=== PATIENT | female | born 1980 | race Hispanic/Latino ===

== ENCOUNTER 2016-06-18 11:40 | Emergency (ER) | payer MEDICAID, OTHER ==
[2016-06-18 11:46] VITALS: BMI 21.2
[2016-06-18 11:47] VITALS: BP 126/45; PULSE 73; RESP 16; TEMP 98; O2SAT 100
--- NOTE | 2016-06-18 13:23 | ED PDOC ---
HPI: Headache Time Seen by Provider: 06/18/16 12:16 Chief Complaint (Nursing): Headache Chief Complaint (Provider): Headache s/p Fall History Per: Patient History/Exam Limitations: no limitations Onset/Duration Of Symptoms: Days (x2) Current Symptoms Are (Timing): Still Present Severity: Moderate Quality: Other (left-sided) Preceeding Symptoms: None Associated Symptoms: denies: Blurred Vision, Nausea, Vomiting, Extremity Weakness, Other (no LOC) Additional Complaint(s): Rachel Antonio is a 35 year old female, with no pertinent past medical history , who presents to the ED on 06/18/16 for the evaluation of a moderate, left- sided headache that she has experienced since having slipped and hit her head 2 days ago. Though headache is not considered worst of life, patient reports that she still feels "hazy/off". Associated mild thoracic spine pain also reported, though she denies vision changes, nausea, vomiting, extremity weakness or loss of consciousness immediately post injury. PMD: Mei Past Medical History Reviewed: Historical Data, Nursing Documentation, Vital Signs Vital Signs: Last Vital Signs Temp 98.0 F 06/18/16 11:46 Pulse 73 06/18/16 11:46 Resp 16 06/18/16 11:46 BP 126/45 L 06/18/16 11:46 Pulse Ox 100 06/18/16 11:46 - Medical History PMH: Anemia, Anxiety (per old chart but pt denies), Depression (per old chart but pt denies), Gastritis Denies: Alzheimer's Disease, Diabetes, Hepatitis, HIV, HTN, Chronic Kidney Disease, Seizures, Sexually Transmitted Disease - Surgical History Surgical History: No Surg Hx - Family History Family History: States: Unknown Family Hx - Immunization History Hx Tetanus Toxoid Vaccination: No Hx Influenza Vaccination: No Hx Pneumococcal Vaccination: No - Home Medications Home Medications: Ambulatory Orders Medication Instructions Recorded No Known Home Med 09/10/15 - Allergies Allergies/Adverse Reactions: Allergies Allergy/AdvReac Type Severity Reaction Status Date / Time Seasonal: Pollen Allergy CONGESTION Uncoded 10/20/15 22:39 Review of Systems Eyes: Negative for: Vision Change Gastrointestinal: Negative for: Nausea, Vomiting Neurological: Positive for: Headache (left-sided, not worst of life). Negative for: Weakness, Numbness, Altered Mental Status (no LOC) Physical Exam - Reviewed Nursing Documentation Reviewed: Yes Vital Signs Reviewed: Yes - Physical Exam Appears: Positive for: Non-toxic, No Acute Distress Head Exam: Positive for: ATRAUMATIC, NORMOCEPHALIC. Negative for: NORMAL INSPECTION (mild tenderness to left-scalp; no crepitus) Skin: Positive for: Normal Color, Warm, Dry Eye Exam: Positive for: Normal appearance, EOMI, PERRL Neck: Positive for: Normal, Painless ROM, Supple Cardiovascular/Chest: Positive for: Regular Rate, Rhythm. Negative for: Murmur Respiratory: Positive for: Normal Breath Sounds. Negative for: Respiratory Distress Back: Positive for: Normal Inspection Extremity: Positive for: Normal ROM (moving all extremities) Neurologic/Psych: Positive for: Alert, program management specialist II-XII (intact), Oriented. Negative for: Motor/Sensory Deficits - ECG O2 Sat by Pulse Oximetry: 100 (RA) Pulse Ox Interpretation: Normal Medical Decision Making Medical Decision Makin:16 Initial Impression: headache s/p head injury; will r/o intracranial abnormality Initial Plan: * CT Head w/o contrast * XR T-Spine * Upreg * Reevaluation On re-evaluation patient was not in room. Scribe Attestation: Documented by Nelli Artis, acting as a scribe for Brenda Horan PA-C. Provider Scribe Attestation: All medical record entries made by the Scribe were at my direction and personally dictated by me. I have reviewed the chart and agree that the record accurately reflects my personal performance of the history, physical exam, medical decision making, and the department course for this patient. I have also personally directed, reviewed, and agree with the discharge instructions and disposition. Disposition - Clinical Impression Clinical Impression: Headache - Patient ED Disposition Is Patient to be Admitted: No - Disposition Disposition: Left W/O Treatment Disposition Time: 13:30 Condition: STABLE
== END 2016-06-18 13:30 | disposition left against medical advice (07) ==
LOC: H.ER 11:40
DX: S09.90XA Unspecified injury of head, initial encounter (principal); W19.XXXA Unspecified fall, initial encounter; Y92.89 Other specified places as the place of occurrence of the external cause; R51 Headache

== ENCOUNTER 2017-03-19 12:54 | Inpatient (IN) | payer OTHER ==
[2017-03-19 12:54] VITALS: BMI 21.2
[2017-03-19] MEDS ORDERED: Sodium Chloride 0.9% 1,000 ML IV STA (14:20)
[2017-03-19 14:48] LABS: BASO % 0.2 % (0.0-2.0); EOS % 0.1 % (0.0-4.0); HEMATOCRIT 40.8 % (34.0-47.0); LYMPH # 1.7 K/uL (1.0-4.3); LYMPH % 9.4 % (20.0-40.0); MEAN CELL VOLUME 99.2 fl (81.0-99.0); MEAN CORPUSCULAR HEMOGLOBIN 33.4 pg (27.0-31.0); MEAN CORPUSCULAR HGB CONC 33.6 g/dL (33.0-37.0); MEAN PLATELET VOLUME 7.7 fl (7.2-11.7); MONO # 0.6 K/uL (0.0-0.8); MONO % 3.5 % (0.0-10.0); NEUT # 15.2 K/uL (1.8-7.0); NEUT % 86.8 % (50.0-75.0); NRBC % 0.1 % (0.0-0.0); PLATELET COUNT 272 K/uL (130-400); RED CELL DISTRIBUTION WIDTH 12.6 % (11.5-14.5); WHITE BLOOD COUNT 17.6 K/uL (4.8-10.8)
[2017-03-19 15:00] LABS: ALB/GLOB RATIO 1.5 (1.0-2.1); ALKALINE PHOSPHATASE 73 U/L (38-126); ALT/SGPT 33 U/L (9-52); AST/SGOT 36 U/L (14-36); BILIRUBIN,TOTAL 0.3 mg/dl (0.2-1.3); BLOOD UREA NITROGEN 13 mg/dl (7-17); CALCIUM 9.2 mg/dL (8.4-10.2); CARBON DIOXIDE 13 mmol/L (22-30); CHLORIDE 104 mmol/L (98-107); GFR AFRICAN-AMERICAN > 60; GLUCOSE,RANDOM 52 mg/dL (65-105); LIPASE 104 U/L (23-300); SODIUM 139 mmol/l (132-148); TOTAL PROTEIN 8.2 G/DL (6.3-8.2)
[2017-03-19] MEDS ORDERED: Iohexol 240 (50 ml) PO ONE (15:00)
[2017-03-19 15:07] LABS: NEUTROPHIL 85 % (42-75); TOTAL CELLS COUNTED 100
--- NOTE | 2017-03-19 15:11 | ED PDOC ---
HPI: Abdomen Time Seen by Provider: 03/19/17 13:15 Chief Complaint (Nursing): Weakness/Neurological Deficit Chief Complaint (Provider): Abdominal Pain History Per: Patient History/Exam Limitations: no limitations Onset/Duration Of Symptoms: Days (x1) Current Symptoms Are (Timing): Still Present Location Of Pain/Discomfort: Diffuse Quality Of Discomfort: Sharp Associated Symptoms: Chills, Nausea, Vomiting, Diarrhea, Loss Of Appetite Alleviating Factors: None Last Bowel Movement: Today Additional Complaint(s): Luz Maria Antonio is a 36 year old female with a past medical history of Crohns disease who presents to the ED complaining of sudden onset diffuse abdominal pain with associated vomiting, diarrhea, and generalized weakness since this morning. Patient is tearful and a poor historian. Asking provider to refer to prior charts for further information. On review, records show patient was admitted to the ICU in March 2016 due to severe colitis and acidosis. Denies bloody stools or known fever today. Patient admitted to nurse that she smokes marijuana daily. Denies alcohol use. PMD: Non-[facility] Provider Abnormal Vaginal Bleeding: No Past Medical History Reviewed: Historical Data, Nursing Documentation, Vital Signs Vital Signs: Last Vital Signs Temp 98.4 F 03/21/17 07:44 Pulse 63 03/21/17 07:44 Resp 18 03/21/17 07:44 BP 108/69 03/21/17 07:44 Pulse Ox 98 03/21/17 07:44 - Medical History PMH: Anemia, Anxiety (per old chart but pt denies), Crohn's Disease, Depression (per old chart but pt denies), Gastritis Denies: Alzheimer's Disease, Diabetes, Hepatitis, HIV, HTN, Chronic Kidney Disease, Seizures, Sexually Transmitted Disease - Surgical History Surgical History: No Surg Hx - Family History Family History: States: Unknown Family Hx - Social History Alcohol: None Drugs: Cannabis (daily) - Immunization History Hx Tetanus Toxoid Vaccination: No Hx Influenza Vaccination: No Hx Pneumococcal Vaccination: No - Home Medications Home Medications: Ambulatory Orders Medication Instructions Recorded No Known Home Med 09/10/15 - Allergies Allergies/Adverse Reactions: Allergies Allergy/AdvReac Type Severity Reaction Status Date / Time Seasonal: Pollen Allergy CONGESTION Uncoded 10/20/15 22:39 Review of Systems ROS Statement: Except As Marked, All Systems Reviewed And Found Negative Constitutional: Positive for: Weakness, Other (Fatigue). Negative for: Fever Gastrointestinal: Positive for: Nausea, Vomiting, Abdominal Pain (diffuse), Diarrhea. Negative for: Hematochezia Physical Exam - Reviewed Nursing Documentation Reviewed: Yes Vital Signs Reviewed: Yes - Physical Exam Appears: Positive for: Non-toxic, No Acute Distress Head Exam: Positive for: ATRAUMATIC, NORMAL INSPECTION, NORMOCEPHALIC Skin: Positive for: Normal Color, Warm, Dry Eye Exam: Positive for: EOMI, Normal appearance, PERRL Neck: Positive for: Normal, Painless ROM, Supple Cardiovascular/Chest: Positive for: Regular Rate, Rhythm. Negative for: Murmur Respiratory: Positive for: Normal Breath Sounds. Negative for: Respiratory Distress Gastrointestinal/Abdominal: Positive for: Tenderness (diffuse) Back: Positive for: Normal Inspection. Negative for: L CVA Tenderness, R CVA Tenderness, Vertebral Tenderness Extremity: Positive for: Normal ROM. Negative for: Pedal Edema, Deformity Neurologic/Psych: Positive for: Alert, Oriented (x3), Mood/Affect (Anxious appearing). Negative for: Motor/Sensory Deficits - Laboratory Results Result Diagrams: 03/20/17 04:35 03/20/17 04:35 - ECG O2 Sat by Pulse Oximetry: 100 (RA) Pulse Ox Interpretation: Normal Medical Decision Making Medical Decision Making: Time: 14:20 Initial Impression: Abdominal pain, vomiting, diarrhea Plan: --Workup for abdominal pain, vomiting and diarrhea --CMP --Lipase --Urine drug screen --Urine --CBC w/ differential --Toradol 30 mg IV --Zofran 4 mg IV --Sodium Chloride 0.9% 1,000 ml IV --Reevaluation Prior chart reviewed 04/15- admitted severe sepsis/ acidosis/ colitis x1d. Time: 15:00 --Blood work reveals elevated white count of 17.6. Pulse is elevated at 130. Sepsis workup is initiated. --VBG Shock Panel --CT Abd & pelvis w/ contrast --Blood culture Code Sepsis initiated given lactate 4.5 and WBC 17. Blood Cx obtained. IVF 30ml/kg ordered Repeat lactate ordered CT abd pelv pending On re-eval 325p states pain improved after 1L NS and toradol --Patient is endorsed to Dr. Pack pending CT, sepsis workup and disposition Scribe Attestation: Documented by Antonio Valdivia acting as a scribe for Shan Stacy DO. MD Scribe Attestation: All medical record entries made by the Scribe were at my direction and personally dictated by me. I have reviewed the chart and agree that the record accurately reflects my personal performance of the history, physical exam, medical decision making, and the department course for this patient. I have also personally directed, reviewed, and agree with the discharge instructions and disposition. Disposition - Clinical Impression Clinical Impression: Lactic acidosis, Severe sepsis - Patient ED Disposition Is Patient to be Admitted: Transfer of Care - Disposition Disposition: Transfer of Care Disposition Time: 15:00 Condition: GUARDED Patient Signed Over To: Whitney Pack Handoff Comments: pending CT and disposition
[2017-03-19 15:26] LABS: VENOUS BLOOD GAS BASE EXCESS -9.3 mmol/L (0.0-2.0); VENOUS BLOOD GAS PCO2 34 mmHg (40-60); VENOUS BLOOD PH 7.29 (7.32-7.43)
[2017-03-19] MEDS ORDERED: Piperacillin/Tazobact 3.375 GM in Sodium Chloride 0.9% 100 ML IVPB STA (15:48)
--- NOTE | 2017-03-19 16:39 | ED PDOC ---
- Laboratory Results Result Diagrams: 03/19/17 14:44 03/19/17 14:44 - ECG O2 Sat by Pulse Oximetry: 99 Medical Decision Making Medical Decision Making: Time: 15:00 --Patient signed over to me by Dr. Stacy pending CT and dispo Time: 20:08 CT Abd and Pelvis FINDINGS: Lower thorax: No acute findings. ABDOMEN: Liver: Unremarkable. No mass. Gallbladder and bile ducts: Unremarkable. No calcified stones. No ductal dilation. Pancreas: Unremarkable. No mass. No ductal dilation. Spleen: Unremarkable. No splenomegaly. Adrenals: Unremarkable. No mass. Kidneys and ureters: There is punctate nonobstructive bilateral nephrolithiasis. Stomach and bowel: There is mild wall thickening of portions of the distal colon which may be due to underdistention, but cannot exclude mild colitis. No other obvious inflammatory change of the bowel. Appendix: The appendix is unremarkable and seen best on axial image 103 of series 3. PELVIS: Bladder: Unremarkable. No mass. Reproductive: There is a 1.7 cm right ovarian cyst or involuting follicle. ABDOMEN and PELVIS: Intraperitoneal space: Unremarkable. No free air. No significant fluid collection. Bones/joints: No acute fracture. No dislocation. Soft tissues: Unremarkable. Vasculature: Unremarkable. No abdominal aortic aneurysm. Lymph nodes: Unremarkable. No enlarged lymph nodes. IMPRESSION: 1. There is punctate nonobstructive bilateral nephrolithiasis. 2. There is a 1.7 cm right ovarian cyst or involuting follicle. 3. There is mild wall thickening of portions of the distal colon which may be due to underdistention, but cannot exclude mild colitis. No other obvious inflammatory change of the bowel. Time: 20:15 --Discussed with Dr. French medical service. Patient will be hospitalized for severe sepsis and colitis. Continued IV hydration. Scribe Attestation: Documented by Antonio Valdivia acting as a scribe for Whitney Pack MD. MD Walls Attestation: All medical record entries made by the Kavita were at my direction and personally dictated by me. I have reviewed the chart and agree that the record accurately reflects my personal performance of the history, physical exam, medical decision making, and the department course for this patient. I have also personally directed, reviewed, and agree with the discharge instructions and disposition. Disposition - Clinical Impression Clinical Impression: Lactic acidosis, Severe sepsis - Disposition Disposition Time: 08:15
[2017-03-19 16:53] LABS: MAGNESIUM 1.6 MG/DL (1.6-2.3)
[2017-03-19] MEDS ORDERED: Iohexol 240 (50 ml) ONE (16:58)
[2017-03-19 17:15] LABS: PARTIAL THROMBOPLASTIN TIME 25.1 Seconds (25.6-37.1)
--- NOTE | 2017-03-19 17:49 | RAD ---
HISTORY: Sepsis Patient COMPARISON: Chest x-ray performed 04/20/16 TECHNIQUE: Chest, one view. FINDINGS: LUNGS: No focal consolidation. Please note that chest x-ray has limited sensitivity for the detection of pulmonary masses. PLEURA: No significant pleural effusion identified. No definite pneumothorax . CARDIOVASCULAR: Heart size appears within normal limits. OSSEOUS STRUCTURES: Degenerative changes of the spine. VISUALIZED UPPER ABDOMEN: Unremarkable. OTHER FINDINGS: None. IMPRESSION: No focal consolidation, significant pleural effusion, or definite pneumothorax identified.
[2017-03-19 18:26] LABS: RBC URINE 1 /hpf (0-3); URINE BILIRUBIN NEGATIVE (NEGATIVE); URINE BLOOD NEGATIVE (NEGATIVE); URINE COLOR YELLOW (YELLOW); URINE GLUCOSE (UA) NEG (Normal); URINE KETONE 80 mg/dL (NEGATIVE); URINE LEUKOCYTE ESTERASE NEG Leu/uL (Negative); URINE PROTEIN NEGATIVE (NEGATIVE); URINE UROBILINOGEN 0.2-1.0 mg/dL (0.2-1.0); WBC URINE < 1 /hpf (0-5)
[2017-03-19 18:31] LABS: VENOUS BLOOD GAS BASE EXCESS -7.6 mmol/L (0.0-2.0); VENOUS BLOOD GAS PCO2 19 mmHg (40-60); VENOUS BLOOD PH 7.47 (7.32-7.43)
[2017-03-19] MEDS ORDERED: Dextrose 50% SYRINGE Inj (50 ml) IVP STA (18:47)
[2017-03-19] MEDS ORDERED: Dextrose 50% SYRINGE Inj (50 ml) ONE (18:50)
[2017-03-19] MEDS ORDERED: Iohexol 300 100 ML IJ ONE (18:55)
[2017-03-19] MEDS: Dextrose 5%/Lactated Ringer's 1,000 ML IV SCH (19:03)
[2017-03-20] MEDS: Ciprofloxacin 400mg/200ml D5W 400 MG/200 ML BAG IVPB SCH ×3 (01:12→20:49)
[2017-03-20] MEDS: metroNIDAZOLE 500mg/100ml NS 100 ML IVPB SCH ×3 (01:16→16:12)
[2017-03-20 05:46] LABS: BASO % 0.6 % (0.0-2.0); EOS # 0.1 K/uL (0.0-0.7); EOS % 2.1 % (0.0-4.0); HEMATOCRIT 33.6 % (34.0-47.0); LYMPH % 34.2 % (20.0-40.0); MEAN CELL VOLUME 98.9 fl (81.0-99.0); MEAN CORPUSCULAR HEMOGLOBIN 33.7 pg (27.0-31.0); MEAN CORPUSCULAR HGB CONC 34.1 g/dL (33.0-37.0); MEAN PLATELET VOLUME 7.6 fl (7.2-11.7); MONO # 0.7 K/uL (0.0-0.8); MONO % 12.2 % (0.0-10.0); NEUT % 50.9 % (50.0-75.0); RED CELL DISTRIBUTION WIDTH 12.6 % (11.5-14.5); WHITE BLOOD COUNT 5.9 K/uL (4.8-10.8)
[2017-03-20] MEDS: Dextrose 5%/Lactated Ringer's 1,000 ML IV SCH ×2 (07:00→16:00)
[2017-03-20 07:20] LABS: BLOOD UREA NITROGEN 7 mg/dl (7-17); CALCIUM 8.2 mg/dL (8.4-10.2); CARBON DIOXIDE 18 mmol/L (22-30); CHLORIDE 103 mmol/L (98-107); GFR AFRICAN-AMERICAN > 60; GLUCOSE,RANDOM 71 mg/dL (65-105); POTASSIUM 3.5 MMOL/L (3.6-5.0); SODIUM 132 mmol/l (132-148)
[2017-03-20] MEDS ORDERED: Potassium Chloride 20 mEq/15 ml LIQ UD PO ONE (09:13)
--- NOTE | 2017-03-20 09:24 | CP.PCM.CON ---
History of Present Illness - History of Present Illness History of Present Illness: 36 yo female admitted with nausea, vomiting, and abdominal pain since Thursday night. Had eaten crabcakes earlier that day. 2 othe recent episodes requiring admission in 08/2015 and 03/2016. No specific etiologies were identified. Currently feeling better Review of Systems - Constitutional Constitutional: absent: Chills - EENT Eyes: absent: Blurred Vision Ears: absent: Decreased Hearing Nose/Mouth/Throat: absent: Epistaxis - Cardiovascular Cardiovascular: absent: Chest Pain - Respiratory Respiratory: absent: Cough - Gastrointestinal Gastrointestinal: As Per HPI Past Patient History - Infectious Disease Hx of Infectious Diseases: None - Past Medical History & Family History Past Medical History?: Yes - Past Social History Smoking Status: Never Smoked - CARDIAC Hx Hypertension: No - PULMONARY Hx Respiratory Disorders: No - NEUROLOGICAL Hx Alzheimer's Disease: No Hx Seizures: No - HEENT Hx HEENT Problems: No - RENAL Hx Chronic Kidney Disease: No - ENDOCRINE/METABOLIC Hx Endocrine Disorders: No - HEMATOLOGICAL/ONCOLOGICAL Hx Anemia: Yes Hx Human Immunodeficiency Virus (HIV): No - INTEGUMENTARY Hx Dermatological Problems: No - MUSCULOSKELETAL/RHEUMATOLOGICAL Hx Musculoskeletal Disorders: No - GASTROINTESTINAL Hx Crohn's Disease: Yes Hx Gastritis: Yes - GENITOURINARY/GYNECOLOGICAL Hx Sexually Transmitted Disorders: No - PSYCHIATRIC Hx Anxiety: Yes (per old chart but pt denies) Hx Depression: Yes (per old chart but pt denies) Hx Substance Use: No - SURGICAL HISTORY Hx Surgeries: Yes Other/Comment: Rhinoplasty 2010 - ANESTHESIA Hx Anesthesia: Yes Hx Anesthesia Reactions: No Meds Allergies/Adverse Reactions: Allergies Allergy/AdvReac Type Severity Reaction Status Date / Time Seasonal: Pollen Allergy CONGESTION Uncoded 10/20/15 22:39 - Medications Medications: Current Medications Dextrose/Lactated Ringer's (Dextrose 5%/Lactated Ringer's) 1,000 mls @ 100 mls/ hr IV .Q10H TIFFANY Last Admin: 03/20/17 07:00 Dose: Not Given Ciprofloxacin (Cipro 400mg/200ml Dsw) 400 mg in 200 mls @ 200 mls/hr IVPB Q12 TIFFANY PRN Reason: Protocol Last Admin: 03/20/17 01:12 Dose: 200 mls/hr Metronidazole (Flagyl 500mg/100ml Ns) 100 mls @ 100 mls/hr IVPB Q8 TIFFANY PRN Reason: Protocol Last Admin: 03/20/17 01:16 Dose: 100 mls/hr Morphine Sulfate (Morphine) 1 mg IVP Q4 PRN PRN Reason: Pain, severe (8-10) Morphine Sulfate (Morphine) 0.5 mg IVP Q4 PRN PRN Reason: Pain, moderate (4-7) Ondansetron HCl (Zofran Inj) 4 mg IVP Q6 PRN PRN Reason: Nausea/Vomiting Pantoprazole Sodium (Protonix Ec Tab) 40 mg PO DAILY TIFFANY Potassium Chloride (Potassium Chloride Oral Soln) 20 meq PO ONCE ONE Stop: 03/20/17 09:14 Physical Exam - Constitutional Appears: No Acute Distress - Head Exam Head Exam: ATRAUMATIC - Eye Exam Eye Exam: Normal appearance - ENT Exam ENT Exam: Normal Exam - Neck Exam Neck exam: Positive for: Normal Inspection - Respiratory Exam Respiratory Exam: Clear to Auscultation Bilateral - Cardiovascular Exam Cardiovascular Exam: REGULAR RHYTHM, +S1, +S2 - GI/Abdominal Exam GI & Abdominal Exam: Normal Bowel Sounds, Soft, Tenderness Additional comments: LLQ tenderness only Results - Vital Signs Recent Vital Signs: Last Vital Signs Temp 98.1 F 03/20/17 08:00 Pulse 67 03/20/17 08:00 Resp 18 03/20/17 08:00 BP 100/65 03/20/17 08:00 Pulse Ox 100 03/20/17 08:00 - Labs Result Diagrams: 03/20/17 04:35 03/20/17 04:35 Labs: Laboratory Results - last 24 hr 03/19/17 03/19/17 03/19/17 14:44 14:44 15:05 WBC 17.6 H D RBC 4.12 Hgb 13.7 D Hct 40.8 MCV 99.2 H D MCH 33.4 H MCHC 33.6 RDW 12.6 Plt Count 272 D MPV 7.7 Neut % (Auto) 86.8 H Lymph % (Auto) 9.4 L [place] % (Auto) 3.5 Eos % (Auto) 0.1 Baso % (Auto) 0.2 Neut # 15.2 H Lymph # 1.7 [place] # 0.6 Eos # 0.0 Baso # 0.0 Neutrophils % (Manual) 85 H Band Neutrophils % 2 Lymphocytes % (Manual) 11 L Monocytes % (Manual) 2 Platelet Estimate Normal RBC Morphology Normal PT INR APTT pO2 27 L VBG pH 7.29 L VBG pCO2 34 L VBG HCO3 16.3 VBG Total CO2 17.3 L VBG O2 Sat (Calc) 46.8 VBG Base Excess -9.3 L VBG Potassium 4.1 A-a O2 Difference 80.0 Glucose 64 L Lactate 4.5 H* FiO2 21.0 Crit Value Called To Stone medina Crit Value Called By 15 Crit Value Read Back Y Blood Gas Notified Time 1524 Sodium 139 135.0 Potassium 4.0 Chloride 104 105.0 Carbon Dioxide 13 L Anion Gap 26 H BUN 13 Creatinine 0.6 L Est GFR ( Amer) > 60 Est GFR (Non-Af Amer) > 60 POC Glucose (mg/dL) Random Glucose 52 L Calcium 9.2 Phosphorus Magnesium Total Bilirubin 0.3 AST 36 ALT 33 Alkaline Phosphatase 73 Total Protein 8.2 Albumin 4.9 Globulin 3.2 Albumin/Globulin Ratio 1.5 Lipase 104 Venous Blood Potassium 4.1 Urine Color Urine Clarity Urine pH Ur Specific [place] Urine Protein Urine Glucose (UA) Urine Ketones Urine Blood Urine Nitrate Urine Bilirubin Urine Urobilinogen Ur Leukocyte Esterase Urine RBC (Auto) Urine Microscopic WBC Ur Squamous Epith Cells Hyaline Casts Urine Opiates Screen Urine Methadone Screen Ur Barbiturates Screen Ur Phencyclidine Scrn Ur Amphetamines Screen U Benzodiazepines Scrn U Oth Cocaine Metabols U Cannabinoids Screen 03/19/17 03/19/17 03/19/17 16:43 16:52 17:56 WBC RBC Hgb Hct MCV MCH MCHC RDW Plt Count MPV Neut % (Auto) Lymph % (Auto) [place] % (Auto) Eos % (Auto) Baso % (Auto) Neut # Lymph # [place] # Eos # Baso # Neutrophils % (Manual) Band Neutrophils % Lymphocytes % (Manual) Monocytes % (Manual) Platelet Estimate RBC Morphology PT 11.0 INR 1.0 APTT 25.1 L pO2 VBG pH VBG pCO2 VBG HCO3 VBG Total CO2 VBG O2 Sat (Calc) VBG Base Excess VBG Potassium A-a O2 Difference Glucose Lactate FiO2 Crit Value Called To Crit Value Called By Crit Value Read Back Blood Gas Notified Time Sodium Potassium Chloride Carbon Dioxide Anion Gap BUN Creatinine Est GFR ( Amer) Est GFR (Non-Af Amer) POC Glucose (mg/dL) Random Glucose Calcium Phosphorus 3.0 Magnesium 1.6 Total Bilirubin AST ALT Alkaline Phosphatase Total Protein Albumin Globulin Albumin/Globulin Ratio Lipase Venous Blood Potassium Urine Color Urine Clarity Urine pH Ur Specific [place] Urine Protein Urine Glucose (UA) Urine Ketones Urine Blood Urine Nitrate Urine Bilirubin Urine Urobilinogen Ur Leukocyte Esterase Urine RBC (Auto) Urine Microscopic WBC Ur Squamous Epith Cells Hyaline Casts Urine Opiates Screen Negative Urine Methadone Screen Negative Ur Barbiturates Screen Negative Ur Phencyclidine Scrn Negative Ur Amphetamines Screen Negative U Benzodiazepines Scrn Negative U Oth Cocaine Metabols Negative U Cannabinoids Screen Positive H 03/19/17 03/19/17 03/19/17 17:56 18:04 18:49 WBC RBC Hgb Hct MCV MCH MCHC RDW Plt Count MPV Neut % (Auto) Lymph % (Auto) [place] % (Auto) Eos % (Auto) Baso % (Auto) Neut # Lymph # [place] # Eos # Baso # Neutrophils % (Manual) Band Neutrophils % Lymphocytes % (Manual) Monocytes % (Manual) Platelet Estimate RBC Morphology PT INR APTT pO2 35 VBG pH 7.47 H VBG pCO2 19 L* VBG HCO3 18.5 VBG Total CO2 14.4 L VBG O2 Sat (Calc) 80.7 H VBG Base Excess -7.6 L VBG Potassium 3.9 A-a O2 Difference 91.0 Glucose 53 L Lactate 3.3 H FiO2 21.0 Crit Value Called To Andrew gutierrez bsn Crit Value Called By 15 Crit Value Read Back Y Blood Gas Notified Time 1831 Sodium 132.0 Potassium Chloride 104.0 Carbon Dioxide Anion Gap BUN Creatinine Est GFR ( Amer) Est GFR (Non-Af Amer) POC Glucose (mg/dL) 46 L Random Glucose Calcium Phosphorus Magnesium Total Bilirubin AST ALT Alkaline Phosphatase Total Protein Albumin Globulin Albumin/Globulin Ratio Lipase Venous Blood Potassium 3.9 Urine Color Yellow Urine Clarity Slighty-cloudy Urine pH 5.0 Ur Specific [place] 1.012 Urine Protein Negative Urine Glucose (UA) Neg Urine Ketones 80 Urine Blood Negative Urine Nitrate Negative Urine Bilirubin Negative Urine Urobilinogen 0.2-1.0 Ur Leukocyte Esterase Neg Urine RBC (Auto) 1 Urine Microscopic WBC < 1 Ur Squamous Epith Cells 14 H Hyaline Casts 3-5 H Urine Opiates Screen Urine Methadone Screen Ur Barbiturates Screen Ur Phencyclidine Scrn Ur Amphetamines Screen U Benzodiazepines Scrn U Oth Cocaine Metabols U Cannabinoids Screen 03/19/17 03/20/17 03/20/17 19:38 04:35 04:35 WBC 5.9 D RBC 3.40 L Hgb 11.4 L D Hct 33.6 L MCV 98.9 MCH 33.7 H MCHC 34.1 RDW 12.6 Plt Count 197 MPV 7.6 Neut % (Auto) 50.9 Lymph % (Auto) 34.2 [place] % (Auto) 12.2 H Eos % (Auto) 2.1 Baso % (Auto) 0.6 Neut # 3.0 Lymph # 2.0 [place] # 0.7 Eos # 0.1 Baso # 0.0 Neutrophils % (Manual) Band Neutrophils % Lymphocytes % (Manual) Monocytes % (Manual) Platelet Estimate RBC Morphology PT INR APTT pO2 VBG pH VBG pCO2 VBG HCO3 VBG Total CO2 VBG O2 Sat (Calc) VBG Base Excess VBG Potassium A-a O2 Difference Glucose Lactate FiO2 Crit Value Called To Crit Value Called By Crit Value Read Back Blood Gas Notified Time Sodium 132 Potassium 3.5 L Chloride 103 Carbon Dioxide 18 L Anion Gap 15 BUN 7 Creatinine 0.6 L Est GFR ( Amer) > 60 Est GFR (Non-Af Amer) > 60 POC Glucose (mg/dL) 115 H Random Glucose 71 Calcium 8.2 L Phosphorus Magnesium Total Bilirubin AST ALT Alkaline Phosphatase Total Protein Albumin Globulin Albumin/Globulin Ratio Lipase Venous Blood Potassium Urine Color Urine Clarity Urine pH Ur Specific [place] Urine Protein Urine Glucose (UA) Urine Ketones Urine Blood Urine Nitrate Urine Bilirubin Urine Urobilinogen Ur Leukocyte Esterase Urine RBC (Auto) Urine Microscopic WBC Ur Squamous Epith Cells Hyaline Casts Urine Opiates Screen Urine Methadone Screen Ur Barbiturates Screen Ur Phencyclidine Scrn Ur Amphetamines Screen U Benzodiazepines Scrn U Oth Cocaine Metabols U Cannabinoids Screen Assessment & Plan (1) Colitis Assessment and Plan: clinical presentation most c/w infectious colitis. Though this is third bout in past year and a half , there is no lab or imaging evidence of IBD. Continue current abx, IV hydration, and C. diff testing. May advance diet today. May benefit from colonoscopy to r/o underlying chronic colitis though this can be done as outpatient. Status: Acute
--- NOTE | 2017-03-20 10:08 | CT ---
PROCEDURE: CT Abdomen and Pelvis with contrast HISTORY: abdominal pain, hx crohns and elev WBC COMPARISON: Abdomen and pelvis CT with contrast 04/20/2016. TECHNIQUE: Contrast dose: Omnipaque 300, 90 cc Radiation dose: Total exam DLP = 437.51 mGy-cm. This CT exam was performed using one or more of the following dose reduction techniques: Automated exposure control, adjustment of the mA and/or kV according to patient size, and/or use of iterative reconstruction technique. FINDINGS: LOWER THORAX: Unremarkable. LIVER: Diminished attenuation of the liver is again appreciated indicating hepatic steatosis. No hepatic lesion is appreciated and there is no intrahepatic biliary dilatation identified. GALLBLADDER AND BILE DUCTS: Unremarkable. PANCREAS: Unremarkable. No gross lesion or ductal dilatation. SPLEEN: Unremarkable. ADRENALS: Unremarkable. No mass. KIDNEYS AND URETERS: A few punctate intrarenal calculi are again identified bilaterally. No obstructive uropathy or perinephric reaction bilaterally. VASCULATURE: Unremarkable. No aortic aneurysm. BOWEL: Borderline mural thickening of the sigmoid colon is questioned though not definite given lack of adequate distention. No pericolic reaction ascites or free intraperitoneal gas. Small bowel is unremarkable as well as stomach as imaged. APPENDIX: Normal appendix. PERITONEUM: Unremarkable. No free fluid. No free air. LYMPH NODES: Unremarkable. No enlarged lymph nodes. BLADDER: Urinary bladder is distended but thin and smooth walled. REPRODUCTIVE: 1.4 cm cyst seen at the right adnexal compartment. BONES: No acute fracture. OTHER FINDINGS: None. IMPRESSION: 1. 1.4 cm right adnexal cyst is appreciated. 2. Borderline mural thickening of the sigmoid colon may be normal due to lack of adequate distention with limited colitis not completely excluded. No pericolic reaction, ascites or free intrarenal gas identified nevertheless. 3. Hepatic steatosis. 4. A few punctate intrarenal calculi are again a few appreciated within the bilateral kidneys without obstructive uropathy identified bilaterally.
[2017-03-20] MEDS: Pantoprazole 40 mg EC Tab PO SCH (10:15)
--- NOTE | 2017-03-20 15:55 | CARD ---
APPROVED REPORT EKG Measurement Heart [id number] <Conclusion> Normal sinus rhythm Prolonged QT Abnormal ECG
--- NOTE | 2017-03-20 17:45 | CP.PCM.HP ---
History of Present Illness - History of Present Illness History of Present Illness: CC: Abdominal Pain History of Present Illness: A 36 year old female with a past medical history of Recurrent Colitis ? Infectious who presents to the ED complaining of sudden onset diffuse abdominal pain with associated vomiting, diarrhea, and generalized weakness since the morning of hospitalization. On review, records show patient was admitted to the ICU in March 2016 due to severe colitis and acidosis. Denies bloody stools or known fever today. Patient admitted to nurse that she smokes marijuana daily. Never had a colonoscopy, and IBD is a possiblility. Denies alcohol use. Present on Admission - Present on Admission Any Indicators Present on Admission: No Review of Systems - Review of Systems All systems: reviewed and no additional remarkable complaints except - Gastrointestinal Gastrointestinal: As Per HPI Past Patient History - Infectious Disease Hx of Infectious Diseases: None - Past Medical History & Family History Past Medical History?: Yes Pertinent Family History: Father Colon Ca @the age of 52years. - Past Social History Smoking Status: Never Smoked Alcohol: None Drugs: Cannabis - CARDIAC Hx Hypertension: No - PULMONARY Hx Respiratory Disorders: No - NEUROLOGICAL Hx Alzheimer's Disease: No Hx Seizures: No - HEENT Hx HEENT Problems: No - RENAL Hx Chronic Kidney Disease: No - ENDOCRINE/METABOLIC Hx Endocrine Disorders: No - HEMATOLOGICAL/ONCOLOGICAL Hx Anemia: Yes Hx Human Immunodeficiency Virus (HIV): No - INTEGUMENTARY Hx Dermatological Problems: No - MUSCULOSKELETAL/RHEUMATOLOGICAL Hx Musculoskeletal Disorders: No - GASTROINTESTINAL Hx Crohn's Disease: Yes Hx Gastritis: Yes - GENITOURINARY/GYNECOLOGICAL Hx Sexually Transmitted Disorders: No - PSYCHIATRIC Hx Anxiety: Yes (per old chart but pt denies) Hx Depression: Yes (per old chart but pt denies) Hx Substance Use: No - SURGICAL HISTORY Hx Surgeries: Yes Other/Comment: Rhinoplasty 2010 - ANESTHESIA Hx Anesthesia: Yes Hx Anesthesia Reactions: No Meds Home Medications: Home Medication List Medication Instructions Recorded Confirmed Type Ciprofloxacin [Cipro] 500 mg PO BID #10 tab 03/21/17 Rx Metronidazole [Flagyl] 500 mg PO Q8 #15 tablet 03/21/17 Rx Pantoprazole [Protonix EC Tab] 40 mg PO DAILY ect 03/21/17 Rx Allergies/Adverse Reactions: Allergies Allergy/AdvReac Type Severity Reaction Status Date / Time Seasonal: Pollen Allergy CONGESTION Uncoded 10/20/15 22:39 Physical Exam - Constitutional Appears: In Acute Distress - Head Exam Head Exam: ATRAUMATIC, NORMAL INSPECTION, NORMOCEPHALIC - Eye Exam Eye Exam: EOMI, Normal appearance, PERRL Pupil Exam: NORMAL ACCOMODATION, PERRL - ENT Exam ENT Exam: Mucous Membranes Moist, Normal Exam - Neck Exam Neck exam: Positive for: Normal Inspection - Respiratory Exam Respiratory Exam: Clear to Auscultation Bilateral, NORMAL BREATHING PATTERN - Cardiovascular Exam Cardiovascular Exam: Tachycardia, +S1, +S2 - GI/Abdominal Exam GI & Abdominal Exam: Guarding, Normal Bowel Sounds, Tenderness. absent: Rebound , Rigid - Extremities Exam Extremities exam: Positive for: full ROM, normal capillary refill, normal inspection - Back Exam Back exam: NORMAL INSPECTION - Neurological Exam Neurological exam: Alert, CN II-XII Intact, Normal Gait, Oriented x3, Reflexes Normal - Psychiatric Exam Psychiatric exam: Normal Affect, Normal Mood - Skin Skin Exam: Dry, Intact, Normal Color, Warm Results - Vital Signs Recent Vital Signs: Last Vital Signs Temp 99.4 F 03/20/17 15:35 Pulse 72 03/20/17 15:35 Resp 20 03/20/17 15:35 BP 133/75 03/20/17 15:35 Pulse Ox 97 03/20/17 15:35 - Labs Result Diagrams: 03/20/17 04:35 03/20/17 04:35 Labs: Laboratory Results - last 24 hr 03/19/17 03/19/17 03/19/17 17:56 17:56 18:04 WBC RBC Hgb Hct MCV MCH MCHC RDW Plt Count MPV Neut % (Auto) Lymph % (Auto) [place] % (Auto) Eos % (Auto) Baso % (Auto) Neut # Lymph # [place] # Eos # Baso # pO2 35 VBG pH 7.47 H VBG pCO2 19 L* VBG HCO3 18.5 VBG Total CO2 14.4 L VBG O2 Sat (Calc) 80.7 H VBG Base Excess -7.6 L VBG Potassium 3.9 A-a O2 Difference 91.0 Sodium 132.0 Chloride 104.0 Glucose 53 L Lactate 3.3 H FiO2 21.0 Crit Value Called To Andrew diaz Crit Value Called By 15 Crit Value Read Back Y Blood Gas Notified Time 1830 Potassium Carbon Dioxide Anion Gap BUN Creatinine Est GFR ( Amer) Est GFR (Non-Af Amer) POC Glucose (mg/dL) Random Glucose Calcium TSH 3rd Generation Venous Blood Potassium 3.9 Urine Color Yellow Urine Clarity Slighty-cloudy Urine pH 5.0 Ur Specific [place] 1.012 Urine Protein Negative Urine Glucose (UA) Neg Urine Ketones 80 Urine Blood Negative Urine Nitrate Negative Urine Bilirubin Negative Urine Urobilinogen 0.2-1.0 Ur Leukocyte Esterase Neg Urine RBC (Auto) 1 Urine Microscopic WBC < 1 Ur Squamous Epith Cells 14 H Hyaline Casts 3-5 H Urine Opiates Screen Negative Urine Methadone Screen Negative Ur Barbiturates Screen Negative Ur Phencyclidine Scrn Negative Ur Amphetamines Screen Negative U Benzodiazepines Scrn Negative U Oth Cocaine Metabols Negative U Cannabinoids Screen Positive H C. difficile Ag & Toxin 03/19/17 03/19/17 03/20/17 18:49 19:38 04:35 WBC 5.9 D RBC 3.40 L Hgb 11.4 L D Hct 33.6 L MCV 98.9 MCH 33.7 H MCHC 34.1 RDW 12.6 Plt Count 197 MPV 7.6 Neut % (Auto) 50.9 Lymph % (Auto) 34.2 [place] % (Auto) 12.2 H Eos % (Auto) 2.1 Baso % (Auto) 0.6 Neut # 3.0 Lymph # 2.0 [place] # 0.7 Eos # 0.1 Baso # 0.0 pO2 VBG pH VBG pCO2 VBG HCO3 VBG Total CO2 VBG O2 Sat (Calc) VBG Base Excess VBG Potassium A-a O2 Difference Sodium Chloride Glucose Lactate FiO2 Crit Value Called To Crit Value Called By Crit Value Read Back Blood Gas Notified Time Potassium Carbon Dioxide Anion Gap BUN Creatinine Est GFR ( Amer) Est GFR (Non-Af Amer) POC Glucose (mg/dL) 46 L 115 H Random Glucose Calcium TSH 3rd Generation Venous Blood Potassium Urine Color Urine Clarity Urine pH Ur Specific [place] Urine Protein Urine Glucose (UA) Urine Ketones Urine Blood Urine Nitrate Urine Bilirubin Urine Urobilinogen Ur Leukocyte Esterase Urine RBC (Auto) Urine Microscopic WBC Ur Squamous Epith Cells Hyaline Casts Urine Opiates Screen Urine Methadone Screen Ur Barbiturates Screen Ur Phencyclidine Scrn Ur Amphetamines Screen U Benzodiazepines Scrn U Oth Cocaine Metabols U Cannabinoids Screen C. difficile Ag & Toxin 03/20/17 03/20/17 03/20/17 04:35 07:38 08:29 WBC RBC Hgb Hct MCV MCH MCHC RDW Plt Count MPV Neut % (Auto) Lymph % (Auto) [place] % (Auto) Eos % (Auto) Baso % (Auto) Neut # Lymph # [place] # Eos # Baso # pO2 VBG pH VBG pCO2 VBG HCO3 VBG Total CO2 VBG O2 Sat (Calc) VBG Base Excess VBG Potassium A-a O2 Difference Sodium 132 Chloride 103 Glucose Lactate FiO2 Crit Value Called To Crit Value Called By Crit Value Read Back Blood Gas Notified Time Potassium 3.5 L Carbon Dioxide 18 L Anion Gap 15 BUN 7 Creatinine 0.6 L Est GFR ( Amer) > 60 Est GFR (Non-Af Amer) > 60 POC Glucose (mg/dL) Random Glucose 71 Calcium 8.2 L TSH 3rd Generation 1.30 Venous Blood Potassium Urine Color Urine Clarity Urine pH Ur Specific [place] Urine Protein Urine Glucose (UA) Urine Ketones Urine Blood Urine Nitrate Urine Bilirubin Urine Urobilinogen Ur Leukocyte Esterase Urine RBC (Auto) Urine Microscopic WBC Ur Squamous Epith Cells Hyaline Casts Urine Opiates Screen Urine Methadone Screen Ur Barbiturates Screen Ur Phencyclidine Scrn Ur Amphetamines Screen U Benzodiazepines Scrn U Oth Cocaine Metabols U Cannabinoids Screen C. difficile Ag & Toxin Negative - Imaging and Cardiology CT scan - abdomen Status: Report reviewed by me Additional comment: IMPRESSION: 1. 1.4 cm right adnexal cyst is appreciated. 2. Borderline mural thickening of the sigmoid colon may be normal due to lack of adequate distention with limited colitis not completely excluded. No pericolic reaction, ascites or free intrarenal gas identified nevertheless. 3. Hepatic steatosis. 4. A few punctate intrarenal calculi are again a few appreciated within the bilateral kidneys without obstructive uropathy identified bilaterally. Assessment & Plan (1) Sepsis Assessment and Plan: Acute Colitis: Infectious VS IBD IVF IV Flagyl and Ciprofloxacin Protonix GI Consult Reviewed all prior medical Record Status: Acute (2) Gastritis Assessment and Plan: Protonix Avoid NSTAIDs and ETOH Status: Chronic Priority: Low (3) Nephrolithiasis Assessment and Plan: Hydration Status: Chronic Priority: Low Comment: Hydration
[2017-03-20] MEDS ORDERED: Petrolatum UD PAK TOP PRN (19:18)
[2017-03-20 23:56] VITALS: RESP 18
[2017-03-21] MEDS: metroNIDAZOLE 500mg/100ml NS 100 ML IVPB SCH ×2 (01:02→09:00)
[2017-03-21] MEDS: Dextrose 5%/Lactated Ringer's 1,000 ML IV SCH (01:02)
[2017-03-21 07:45] VITALS: BP 108/69; PULSE 63; TEMP 98.4
[2017-03-21 08:20] VITALS: O2SAT 100
[2017-03-21] MEDS: Ciprofloxacin 400mg/200ml D5W 400 MG/200 ML BAG IVPB SCH (09:00)
[2017-03-21] MEDS: Pantoprazole 40 mg EC Tab PO SCH (09:25)
--- NOTE | 2017-03-21 11:59 | CP.PCM.DIS ---
Provider - Provider Date of Admission: 03/19/17 20:32 Attending physician: Yoanna French MD Time Spent in preparation of Discharge (in minutes): 25 Diagnosis - Discharge Diagnosis (1) Sepsis Status: Acute (2) Gastritis Status: Chronic Priority: Low (3) Nephrolithiasis Status: Chronic Priority: Low Hospital Course - Lab Results Lab Results: Micro Results 03/19/17 14:45 Blood Blood Culture - Preliminary NO GROWTH AFTER 24 HOURS 03/19/17 15:15 Blood Blood Culture - Preliminary NO GROWTH AFTER 24 HOURS Most Recent Lab Values WBC 5.9 K/uL (4.8-10.8) D 03/20/17 04:35 RBC 3.40 Mil/uL (3.80-5.20) L 03/20/17 04:35 Hgb 11.4 g/dL (12.0-16.0) L D 03/20/17 04:35 Hct 33.6 % (34.0-47.0) L 03/20/17 04:35 MCV 98.9 fl (81.0-99.0) 03/20/17 04:35 MCH 33.7 pg (27.0-31.0) H 03/20/17 04:35 MCHC 34.1 g/dL (33.0-37.0) 03/20/17 04:35 RDW 12.6 % (11.5-14.5) 03/20/17 04:35 Plt Count 197 K/uL (130-400) 03/20/17 04:35 MPV 7.6 fl (7.2-11.7) 03/20/17 04:35 Neut % (Auto) 50.9 % (50.0-75.0) 03/20/17 04:35 Lymph % (Auto) 34.2 % (20.0-40.0) 03/20/17 04:35 [place] % (Auto) 12.2 % (0.0-10.0) H 03/20/17 04:35 Eos % (Auto) 2.1 % (0.0-4.0) 03/20/17 04:35 Baso % (Auto) 0.6 % (0.0-2.0) 03/20/17 04:35 Neut # 3.0 K/uL (1.8-7.0) 03/20/17 04:35 Lymph # 2.0 K/uL (1.0-4.3) 03/20/17 04:35 [place] # 0.7 K/uL (0.0-0.8) 03/20/17 04:35 Eos # 0.1 K/uL (0.0-0.7) 03/20/17 04:35 Baso # 0.0 K/uL (0.0-0.2) 03/20/17 04:35 Neutrophils % (Manual) 85 % (42-75) H 03/19/17 14:44 Band Neutrophils % 2 % (0-2) 03/19/17 14:44 Lymphocytes % (Manual) 11 % (20-50) L 03/19/17 14:44 Monocytes % (Manual) 2 % (0-10) 03/19/17 14:44 Platelet Estimate Normal (NORMAL) 03/19/17 14:44 RBC Morphology Normal (NORMAL) 03/19/17 14:44 PT 11.0 Seconds (9.8-13.1) 03/19/17 16:52 INR 1.0 (0.9-1.2) 03/19/17 16:52 APTT 25.1 Seconds (25.6-37.1) L 03/19/17 16:52 pO2 35 mm/Hg (30-55) 03/19/17 18:04 VBG pH 7.47 (7.32-7.43) H 03/19/17 18:04 VBG pCO2 19 mmHg (40-60) L* 03/19/17 18:04 VBG HCO3 18.5 mmol/L 03/19/17 18:04 VBG Total CO2 14.4 mmol/L (22-28) L 03/19/17 18:04 VBG O2 Sat (Calc) 80.7 % (40-65) H 03/19/17 18:04 VBG Base Excess -7.6 mmol/L (0.0-2.0) L 03/19/17 18:04 VBG Potassium 3.9 mmol/L (3.6-5.2) 03/19/17 18:04 A-a O2 Difference 91.0 mm/Hg 03/19/17 18:04 Sodium 132.0 mmol/L (132-148) 03/19/17 18:04 Chloride 104.0 mmol/L (98-107) 03/19/17 18:04 Glucose 53 mg/dL (65-105) L 03/19/17 18:04 Lactate 3.3 mmol/L (0.7-2.1) H 03/19/17 18:04 FiO2 21.0 % 03/19/17 18:04 Crit Value Called To Andrew diaz 03/19/17 18:04 Crit Value Called By Estela 03/19/17 18:04 Crit Value Read Back Y 03/19/17 18:04 Blood Gas Notified Time 1831 03/19/17 18:04 Sodium 132 mmol/l (132-148) 03/20/17 04:35 Potassium 3.5 MMOL/L (3.6-5.0) L 03/20/17 04:35 Chloride 103 mmol/L (98-107) 03/20/17 04:35 Carbon Dioxide 18 mmol/L (22-30) L 03/20/17 04:35 Anion Gap 15 (10-20) 03/20/17 04:35 BUN 7 mg/dl (7-17) 03/20/17 04:35 Creatinine 0.6 mg/dl (0.7-1.2) L 03/20/17 04:35 Est GFR ( Amer) > 60 03/20/17 04:35 Est GFR (Non-Af Amer) > 60 03/20/17 04:35 POC Glucose (mg/dL) 115 mg/dL (65-110) H 03/19/17 19:38 Random Glucose 71 mg/dL (65-105) 03/20/17 04:35 Calcium 8.2 mg/dL (8.4-10.2) L 03/20/17 04:35 Phosphorus 3.0 mg/dl (2.5-4.5) 03/19/17 16:43 Magnesium 1.6 MG/DL (1.6-2.3) 03/19/17 16:43 Total Bilirubin 0.3 mg/dl (0.2-1.3) 03/19/17 14:44 AST 36 U/L (14-36) 03/19/17 14:44 ALT 33 U/L (9-52) 03/19/17 14:44 Alkaline Phosphatase 73 U/L (38-126) 03/19/17 14:44 Total Protein 8.2 G/DL (6.3-8.2) 03/19/17 14:44 Albumin 4.9 g/dL (3.5-5.0) 03/19/17 14:44 Globulin 3.2 gm/dL (2.2-3.9) 03/19/17 14:44 Albumin/Globulin Ratio 1.5 (1.0-2.1) 03/19/17 14:44 Lipase 104 U/L (23-300) 03/19/17 14:44 TSH 3rd Generation 1.30 mIU/ML (0.46-4.68) 03/20/17 07:38 Venous Blood Potassium 3.9 mmol/L (3.6-5.2) 03/19/17 18:04 Urine Color Yellow (YELLOW) 03/19/17 17:56 Urine Clarity Slighty-cloudy (Clear) 03/19/17 17:56 Urine pH 5.0 (5.0-8.0) 03/19/17 17:56 Ur Specific [place] 1.012 (1.003-1.030) 03/19/17 17:56 Urine Protein Negative mg/dL (NEGATIVE) 03/19/17 17:56 Urine Glucose (UA) Neg mg/dL (Normal) 03/19/17 17:56 Urine Ketones 80 mg/dL (NEGATIVE) 03/19/17 17:56 Urine Blood Negative (NEGATIVE) 03/19/17 17:56 Urine Nitrate Negative (NEGATIVE) 03/19/17 17:56 Urine Bilirubin Negative (NEGATIVE) 03/19/17 17:56 Urine Urobilinogen 0.2-1.0 mg/dL (0.2-1.0) 03/19/17 17:56 Ur Leukocyte Esterase Neg [place]/uL (Negative) 03/19/17 17:56 Urine RBC (Auto) 1 /hpf (0-3) 03/19/17 17:56 Urine Microscopic WBC < 1 /hpf (0-5) 03/19/17 17:56 Ur Squamous Epith Cells 14 /hpf (0-5) H 03/19/17 17:56 Hyaline Casts 3-5 /hpf (0-2) H 03/19/17 17:56 Urine Opiates Screen Negative (NEGATIVE) 03/19/17 17:56 Urine Methadone Screen Negative (NEGATIVE) 03/19/17 17:56 Ur Barbiturates Screen Negative (NEGATIVE) 03/19/17 17:56 Ur Phencyclidine Scrn Negative (NEGATIVE) 03/19/17 17:56 Ur Amphetamines Screen Negative (NEGATIVE) 03/19/17 17:56 U Benzodiazepines Scrn Negative (NEGATIVE) 03/19/17 17:56 U Oth Cocaine Metabols Negative (NEGATIVE) 03/19/17 17:56 U Cannabinoids Screen Positive (NEGATIVE) H 03/19/17 17:56 C. difficile Ag & Toxin Negative (NEGATIVE) 03/20/17 08:29 Discharge Exam - Head Exam Head Exam: ATRAUMATIC, NORMAL INSPECTION, NORMOCEPHALIC - Eye Exam Eye Exam: EOMI, Normal appearance, PERRL Pupil Exam: NORMAL ACCOMODATION, PERRL - GI/Abdominal Exam GI & Abdominal Exam: Normal Bowel Sounds - Rectal Exam Rectal Exam: NORMAL INSPECTION - Exam Exam: Circumcision, NORMAL INSPECTION External exam: NORMAL EXTERNAL EXAM Speculum exam: NORMAL SPECULUM EXAM Bimanual exam: NORMAL BIMANUAL EXAM - Neurological Exam Neurological exam: Alert, CN II-XII Intact, Normal Gait, Oriented x3, Reflexes Normal - Psychiatric Exam Psychiatric exam: Normal Affect, Normal Mood - Skin Skin Exam: Dry, Intact, Normal Color, Warm Discharge Plan - Discharge Medications Prescriptions: Ciprofloxacin [Cipro] 500 mg PO BID #10 tab Metronidazole [Flagyl] 500 mg PO Q8 #15 tablet - Follow Up Plan Condition: GUARDED Disposition: HOME/ ROUTINE Instructions: Infectious Colitis (GEN) Additional Instructions: Call for gastrointestinal follow up [phone].
== END 2017-03-21 13:40 | disposition home or self-care (01) | DRG 872 ==
LOC: H.ER 12:54 → H.ERHOLD 20:32 → H.TEL 23:06
PROVIDERS: ADMIT Internal Medicine; ATTEND Internal Medicine
DX: A41.9 Sepsis, unspecified organism (principal); E87.2 Acidosis; K50.90 Crohn's disease, unspecified, without complications; A09 Infectious gastroenteritis and colitis, unspecified; R65.20 Severe sepsis without septic shock; N20.0 Calculus of kidney; K29.70 Gastritis, unspecified, without bleeding